=== PATIENT | female | born 1965 | race Caucasian/White ===

== ENCOUNTER 2023-05-15 07:07 | Day surgery (SDC) | payer MEDICARE ==
[~2023-05-15] VITALS: Ht 157.5 cm; Wt 93.3 kg
[2023-05-15 07:36] VITALS: BP 203/103; PULSE 57; TEMP 97.4
[2023-05-15] MEDS ORDERED: B-12 500 MCG PO (07:42)
[2023-05-15] MEDS ORDERED: COMPLETE MULTI1 TAB PO (07:42)
[2023-05-15] MEDS ORDERED: VITAMIN D31000 IU PO (07:43)
[2023-05-15] MEDS ORDERED: BENADRYL ALLERG25 M2 PO (07:43)
[2023-05-15] MEDS ORDERED: BIOTIN5000 MCG PO (07:43)
[2023-05-15] MEDS ORDERED: PROTONIX 40MG T40 MG PO (07:44)
[2023-05-15] MEDS ORDERED: CARAFATE 1GM1 G PO (07:44)
[2023-05-15] MEDS ORDERED: NORCO 325 MG-51 TAB PO (07:44)
[2023-05-15] MEDS ORDERED: DITROPAN 5MG TAB5 MG PO (07:45)
[2023-05-15] MEDS ORDERED: VENTOLIN0.09 MG IH (07:45)
--- NOTE | 2023-05-15 08:16 | NUR ---
BLOOD PRESSURES ELEVATED AT 189/90 LEFT ARM TAKEN MANUALLY AND RIGHT ARM 192/100. ELEVATED BLOOD PRESSURES REPORTED TO ALBERTO COTTRELL WILL CONTINUE TO MONITOR.
[2023-05-15 09:27] VITALS: BP 217/102; PULSE 60; TEMP 97.2
[2023-05-15 09:42] VITALS: BP 214/99; PULSE 56
[2023-05-15 09:50] VITALS: BP 204/104; PULSE 60
--- NOTE | 2023-05-15 09:55 | NUR ---
0927 RETURNS TO ROOM 8 PER CART. AWAKE, ALERT. RESP UNLABORED. AMBULATES TO RECLINER WITH TANDBY ASSIST. DENIES NAUSEA, CHEST/ABD PAIN OR DYSPHAGIA. VITAL SIGNS OBTAINED. CALL LIGHT AT SIDE. IN ROOM 0935 TOLERATES PO JUICE WITHOUT NAUSEA. SWALLOWS WITHOUT DIFFICULTY. DISCHARGE INSTRUCTIONS REVIEWED, INCLUDING IMPORTANCE OF FOLLOWING UP WITH PCP REGARDING HYPERTENSION. PATIENT VERBALIZES UNDERSTANDING 0938 DR. MITCHELL HERE TO VISIT WITH PATIENT. REINFORCES TO PATIENT IMPORTANCE OF FOLLOWING UP WITH PCP 0940 Perry MARTINEZ CRNA NOTIFIED OF HYPERTENSION, OKAY TO DISCHARGE, AFTER EDUCATING PATIENT ON IMPORTANCE OF FOLLOWING UP WITH PCP 0948 DRESSES SELF
== END 2023-05-15 09:57 | disposition home or self-care (01) ==
LOC: SDCO 07:07
DX: K31.89 Other diseases of stomach and duodenum (principal); R10.13 Epigastric pain; R11.14 Bilious vomiting; Z98.84 Bariatric surgery status; Z79.899 Other long term (current) drug therapy; Z87.891 Personal history of nicotine dependence; Z87.11 Personal history of peptic ulcer disease
CPT/HCPCS: J2704; J7120